=== PATIENT | male | born 1940 | race Caucasian/White ===

== ENCOUNTER 2017-07-14 08:01 | Day surgery (SDC) | payer MEDICARE, BC ==
[2017-07-14] MEDS ORDERED: LIDOCAINE 2% MDV (20MG/ML) 20ML VIAL IV ONE (08:02)
[2017-07-14] MEDS ORDERED: PROPOFOL 10 MG/ML VIAL IV ONE (08:02)
--- NOTE | 2017-07-15 09:30 | Operative Note ---
DATE OF SURGERY: 07/14/2017 OPERATION: COLONOSCOPY. PREOPERATIVE DIAGNOSIS: Personal history of colon polyps. POSTOPERATIVE DIAGNOSIS: Sigmoid diverticulosis and internal hemorrhoids. PREPARATION QUALITY: Good. ESTIMATED BLOOD LOSS: None. SPECIMENS: None. COMPLICATIONS: None apparent. PROCEDURE: After informed consent was obtained from the patient, he was placed in the left lateral decubitus position in the endoscopy suite, sedated and monitored by the department of anesthesia. Digital rectal exam revealed no palpable rectal mass. A well-lubricated [id number] colonoscope was inserted into the rectum and advanced to the cecum. Ileocecal valve and appendiceal orifice were identified. The preparation quality was good at best. The cecum, ascending colon, transverse colon, descending colon, sigmoid colon, and rectum were carefully inspected in retrograde fashion. There were scattered diverticula in the sigmoid colon. No polyps were seen in the cecum, ascending colon, transverse colon, descending colon, sigmoid colon, or rectum. J-turn views of the anorectum revealed internal hemorrhoids that were grade 1-2. The endoscope was straightened, the rectal ampulla deflated, and the endoscope was removed. RECOMMENDATIONS: The patient should follow a high-fiber diet and resume his medications. I would recommend a repeat colonoscopy in 5 years should his health allow. As always, thank you for allowing me to participate in the healthcare of your patients. CC: Dr. Garret LECHUGA
== END 2017-07-14 09:50 | disposition home or self-care (01) ==
LOC: HOP 08:01
PROVIDERS: ATTEND Internal Medicine Gastroenterology
DX: Z12.11 Encounter for screening for malignant neoplasm of colon (principal); Z86.010 Personal history of colon polyps; K21.9 Gastro-esophageal reflux disease without esophagitis; E11.9 Type 2 diabetes mellitus without complications; Z79.84 Long term (current) use of oral hypoglycemic drugs; E78.00 Pure hypercholesterolemia, unspecified; K57.30 Diverticulosis of large intestine without perforation or abscess without bleeding; K64.0 First degree hemorrhoids

== ENCOUNTER 2018-02-23 07:32 | Day surgery (SDC) | payer MEDICARE, BC ==
[2018-02-23] MEDS ORDERED: ONDANSETRON HCL IV 4 MG/2 ML VIAL IVP ONE (07:33)
[2018-02-23] MEDS ORDERED: PROPOFOL 10 MG/ML VIAL IV ONE (07:33)
[2018-02-23] MEDS ORDERED: LIDOCAINE 2% MDV (20MG/ML) 20ML VIAL IV ONE (07:33)
--- NOTE | 2018-02-24 10:30 | Operative Note ---
DATE OF SURGERY: 02/23/2018 OPERATION: ESOPHAGOGASTRODUODENOSCOPY with biopsy. PREOPERATIVE DIAGNOSIS: Chronic cough and heartburn. POSTOPERATIVE DIAGNOSIS: Multiple gastric polyps, otherwise normal upper endoscopy. SPECIMENS: Gastric polyps. ESTIMATED BLOOD LOSS: Minimum. COMPLICATIONS: None apparent. PROCEDURE: After informed consent was obtained from the patient, he was placed in the left lateral decubitus position in the endoscopy suite, sedated and monitored by the department of anesthesia. A well-lubricated [id number] gastroscope was placed in the posterior oropharynx under direct visualization, passed to the proximal esophagus. The endoscope was advanced through the proximal, mid, and distal esophagus. The GE junction and esophagus were unremarkable. The gastric body and antrum demonstrated no inflammatory changes but there were multiple polyps in the body and fundus. These polyps were medium-sized and were sessile. The pylorus, duodenal bulb, and sweep were unremarkable. J-turn views of the proximal stomach revealed multiple polyps. The endoscope was straightened and multiple gastric body polyps were biopsied. No excessive bleeding was noted. The endoscope was retracted throughout the course of the proximal stomach and esophagus. No new findings or abnormalities were identified. RECOMMENDATIONS: The patient should be in a [id number] PPI for 3 months in order to determine if the reflux issue is the cause of his chronic cough. As always, thank you for allowing me to participate in the healthcare of your patients. CC: Garret Means MD [facility]
== END 2018-02-23 09:15 | disposition home or self-care (01) ==
LOC: HOP 07:32
PROVIDERS: ATTEND Internal Medicine Gastroenterology
DX: R05 Cough (principal); R12 Heartburn; K31.7 Polyp of stomach and duodenum; I10 Essential (primary) hypertension; E11.9 Type 2 diabetes mellitus without complications; E78.00 Pure hypercholesterolemia, unspecified
CPT/HCPCS: 43239; 00731; 88305; J2405